=== PATIENT | female | born 1990 | race Caucasian/White ===

== ENCOUNTER 2021-04-15 20:44 | Emergency (ER) | payer SELFPAY ==
[~2021-04-15] VITALS: Ht 165.1 cm; Wt 44.5 kg
--- NOTE | 2021-04-15 22:00 | NUR ---
PATIENT WAS CALLED TO BE TRIAGED BUT WAS NOT PRESENT IN THE WAITING ROOM OR OUTSIDE OF ER.
--- NOTE | 2021-04-16 02:00 | NUR ---
BEDS IA AVAILABLE AT THIS TIME IN ROOM 5A, PLACED IN ROOM.
--- NOTE | 2021-04-16 02:13 | NUR ---
PATIENT C/O VALDEZ THAT STARTED 3 DAYS AGO. PATIENT STATES THAT THAT 5 MONTHS AGO THEY FOUND A MASS ON RIGHT NECK WHICH CAUSES HER PAIN AND HAD THAT IS WORSE INT THE LAST 3 DAYS.
--- NOTE | 2021-04-16 02:36 | NUR ---
Dr. Alcantara on bedside for MSE.
[2021-04-16] MEDS ORDERED: KETOROLAC TROMETHAMINE 30 MG INJ IVP ONE (02:45)
[2021-04-16] MEDS ORDERED: IBUPROFEN 600 MG TABLET PO ONE (03:00)
[2021-04-16 03:01] LABS: HEMATOCRIT 38.1 % (31.2-41.9); MEAN CORPUSCULAR HEMOGLOBIN 28.4 uug (24.7-32.8); MEAN CORPUSCULAR VOLUME 85.5 fL (75.5-95.3); PLATELET COUNT (AUTO) 235 K/uL (179-408)
[2021-04-16] MEDS ORDERED: KETOROLAC TROMETHAMINE 30 MG INJ ONE (03:02)
[2021-04-16 03:04] LABS: CREATININE 0.8 mg/dL (0.6-1.3); POTASSIUM 3.9 mmol/L (3.5-5.1)
[2021-04-16] MEDS ORDERED: IBUPROFEN 600 MG TABLET ONE (03:07)
[2021-04-16] MEDS ORDERED: MORPHINE SULFATE 2 MG/1 ML DISP.SYRIN IV ONE ×3 (03:15→05:15)
[2021-04-16] MEDS ORDERED: MORPHINE SULFATE 2 MG/1 ML DISP.SYRIN ONE ×3 (03:19→05:24)
[2021-04-16 03:33] LABS: *URINE HCG, QUAL NEGATIVE (NEGATIVE)
--- NOTE | 2021-04-16 03:33 | NUR ---
order entry technician Keshav informed of CT neck with contrast order.
[2021-04-16] MEDS ORDERED: IOHEXOL 300MG/ML 100 ML INFUS..BTL ONE (03:44)
[2021-04-16] MEDS ORDERED: SWABABLE VALVE TRANSFER SET EA MC ONE (03:44)
[2021-04-16] MEDS ORDERED: IV NORMAL SALINE 250 ML IV ONE (03:44)
--- NOTE | 2021-04-16 03:56 | NUR ---
Back from CT
--- NOTE | 2021-04-16 04:46 | NUR ---
Telephone call to wood technologist Keshav to follow up result for CT neck.
--- NOTE | 2021-04-16 05:27 | NUR ---
Dr. Alcantara on bedside speaking to pt and pt mother.
[2021-04-16] MEDS ORDERED: ACET120E PO (05:51)
[2021-04-16 05:58] VITALS: BP 122/74
[2021-04-16] MEDS ORDERED: LORAZEPAM 0.5 MG TABLET ONE (05:58)
--- NOTE | 2021-04-16 05:58 | NUR ---
Patient discharged to home in stable condition. Written and verbal after care instructions given. Patient verbalizes understanding of instructions. Stressed follow up or return to ER for worsening s/s. Patient ambulated fr the ER with steady gait. All belongings with patient.
[2021-04-16] MEDS ORDERED: LORAZEPAM 0.5 MG TABLET PO ONE (06:00)
== END 2021-04-16 05:59 | disposition home or self-care (01) ==
LOC: ER 20:50
DX: E04.1 Nontoxic single thyroid nodule (principal); M54.2 Cervicalgia; Z88.6 Allergy status to analgesic agent; F17.210 Nicotine dependence, cigarettes, uncomplicated
CPT/HCPCS: 36415; 70491; 80048; 84703; 85025; 96374; 96376; 99285; J2270 ×3; Q9967; J1885; J7050